=== PATIENT | male | born 1965 | race Caucasian/White ===

== ENCOUNTER 2021-02-28 10:50 | Emergency (ER) | payer OTHER ==
[~2021-02-28] VITALS: Ht 172.7 cm; Wt 154.0 kg
[2021-02-28] MEDS ORDERED: SERTRALINE50 MG PO (11:18)
[2021-02-28] MEDS ORDERED: LIPITOR20 M1 PO (11:18)
[2021-02-28] MEDS ORDERED: METFORMIN HCL500 M1 PO (11:18)
[2021-02-28 12:28] LABS: HEMATOCRIT 42.3 % (39.0-50.0); HEMOGLOBIN 14.1 g/dl (14.0-18.0); IMMATURE GRANULOCYTES 0.3 % (0.0-5.0); MEAN CORPUSCULAR HGB CONC 33.3 g/dL CAL (32.0-36.0); NEUT# 4.14 thou/uL (1.82-7.42); RED BLOOD COUNT 4.55 mill/uL (4.70-6.10); RED CELL DISTRI WIDTH 12.4 % (11.5-15.5)
[2021-02-28 12:41] LABS: ALBUMIN 3.9 g/dL (3.2-5.0); ALKALINE PHOSPHATASE 83 u/l (38-126); ANION GAP 12 (6-22 (CALC)); BILIRUBIN, TOTAL 0.8 mg/dL (0.0-1.4); BUN 13 mg/dL (9-20); BUN/CREATININE RATIO 22 (12-20 (CALC)); CARBON DIOXIDE 28 mmol/l (22-30); CHLORIDE 99 mmol/l (95-108); CREATININE 0.6 mg/dL (0.7-1.3); GFR > 60 ML/MIN (>=60 (CALC)); GFR FOR AFR.AMER. > 60 ML/MIN (>=60 (CALC)); LIPASE 82 u/l (23-300); POTASSIUM 3.6 mmol/l (3.5-5.1); SGOT/AST 39 u/l (17-59); SODIUM 136 mmol/l (137-146); TOTAL PROTEIN 6.7 g/dL (6.3-8.2)
[2021-02-28] MEDS ORDERED: ONDANSETRON4 MG PO (15:56)
[2021-02-28 16:10] VITALS: BP 141/67
== END 2021-02-28 16:00 | disposition home or self-care (01) ==
LOC: ED 10:50 → EDSEX 12:07 → ED 16:00
PROVIDERS: Family Medicine
DX: K52.9 Noninfective gastroenteritis and colitis, unspecified (principal); J45.909 Unspecified asthma, uncomplicated; Z20.822 Contact with and (suspected) exposure to COVID-19

== ENCOUNTER 2021-05-25 08:39 | Emergency (ER) | payer OTHER ==
[~2021-05-25] VITALS: Ht 172.7 cm; Wt 155.0 kg
[~2021-05-25 08:39] MED LIST: LIPITOR20 M1 PO; METFORMIN HCL500 M1 PO; ONDANSETRON4 MG PO; SERTRALINE50 MG PO
[2021-05-25 09:55] LABS: HEMATOCRIT 43.8 % (39.0-50.0); IMMATURE GRANULOCYTES 0.5 % (0.0-5.0); MEAN CELL VOLUME 93.6 fL CALC (80.0-100.0); MEAN CORPUSCULAR HGB 29.9 pG CALC (26.0-32.0); NEUT# 5.73 thou/uL (1.82-7.42); RED BLOOD COUNT 4.68 mill/uL (4.70-6.10); RED CELL DISTRI WIDTH 12.3 % (11.5-15.5)
[2021-05-25 10:13] LABS: ALBUMIN 4.1 g/dL (3.2-5.0); ALKALINE PHOSPHATASE 99 u/l (38-126); ANION GAP 13 (6-22 (CALC)); BILIRUBIN, TOTAL 0.9 mg/dL (0.0-1.4); BUN 12 mg/dL (9-20); BUN/CREATININE RATIO 20 (12-20 (CALC)); CARBON DIOXIDE 31 mmol/l (22-30); CHLORIDE 98 mmol/l (95-108); CREATININE 0.6 mg/dL (0.7-1.3); GFR > 60 ML/MIN (>=60 (CALC)); GFR FOR AFR.AMER. > 60 ML/MIN (>=60 (CALC)); POTASSIUM 4.2 mmol/l (3.5-5.1); SGOT/AST 26 u/l (17-59); SODIUM 137 mmol/l (137-146); TOTAL PROTEIN 7.5 g/dL (6.3-8.2)
[2021-05-25] MEDS ORDERED: CEPHALEXIN500 M1 PO (10:49)
[2021-05-25] MEDS ORDERED: BACTRIM DS1 TAB PO (10:49)
[2021-05-25] MEDS ORDERED: HYDROCO/APAP1 TA9 PO (10:50)
[2021-05-25 12:45] VITALS: BP 136/87
== END 2021-05-25 12:45 | disposition home or self-care (01) ==
LOC: ED 08:39 → EDSEX 10:40 → ED 12:45
PROVIDERS: Family Medicine
DX: J34.0 Abscess, furuncle and carbuncle of nose (principal); J45.909 Unspecified asthma, uncomplicated

== ENCOUNTER 2021-05-26 07:47 | Observation (INO) | payer OTHER ==
[~2021-05-26] VITALS: Ht 172.7 cm; Wt 152.0 kg
[~2021-05-26 07:47] MED LIST changes: +BACTRIM DS1 TAB PO; +CEPHALEXIN500 M1 PO; +HYDROCO/APAP1 TA9 PO
--- NOTE | 2021-05-26 07:58 | NUR ---
P[ATIENT TO ROOM WITH A STEADY GAIT.
[2021-05-26 08:41] LABS: HEMATOCRIT 42.8 % (37.0-47.0); HEMOGLOBIN 13.6 g/dl (12.0-16.0); IMMATURE GRANULOCYTES 0.4 % (0.0-5.0); MEAN CELL VOLUME 94.1 fL CALC (80.0-100.0); MEAN CORPUSCULAR HGB 29.9 pG CALC (26.0-32.0); MEAN CORPUSCULAR HGB CONC 31.8 g/dL CAL (32.0-36.0); NEUT# 7.02 thou/uL (2.00-7.15); RED BLOOD COUNT 4.55 mill/uL (4.20-5.60); RED CELL DISTRI WIDTH 12.4 % (11.5-15.5)
[2021-05-26 08:53] LABS: ALKALINE PHOSPHATASE 97 u/l (38-126); ANION GAP 14 (6-22 (CALC)); BILIRUBIN, TOTAL 1.1 mg/dL (0.0-1.4); BUN 15 mg/dL (7-17); BUN/CREATININE RATIO 21 (12-20 (CALC)); CARBON DIOXIDE 29 mmol/l (22-30); CHLORIDE 96 mmol/l (95-108); CREATININE 0.7 mg/dL (0.5-1.0); GFR > 60 ML/MIN (>=60 (CALC)); GFR FOR AFR.AMER. > 60 ML/MIN (>=60 (CALC)); POTASSIUM 3.9 mmol/l (3.5-5.1); SGOT/AST 25 u/l (14-36); SODIUM 135 mmol/l (137-146); TOTAL PROTEIN 7.2 g/dL (6.3-8.2)
--- NOTE | 2021-05-26 09:00 | NUR ---
PATIENT RETING COMFORTABLY ON STRETCHER AT THIS TIME AWAITING RESULTS
--- NOTE | 2021-05-26 09:55 | NUR ---
PATIENT RESTING COMFORTABLY ON STRETCHER AWAITING ADMISSION
--- NOTE | 2021-05-26 10:36 | NUR ---
REPORT CALLED TO FORD COPELAND.
[2021-05-26 10:42] VITALS: BP 135/71
--- NOTE | 2021-05-26 10:45 | NUR ---
Admission Note Report Given to: Transported by: X Wheelchair Stretcher Transported with: X Nurse Transporter X Patent IV O2 Chair Maker Location: ICU X MS2
--- NOTE | 2021-05-26 10:50 | NUR ---
PT ARRIVED VIA WC ACCOMPANIED BY Tabitha PEDERSEN RN. PT A&O X4. NO DISTRESS NOTED. DENIES ANY PAIN AT THIS TIME. SLIGHT REDNESS/SWELLING NOTED TO RT SIDE OF FACE ALONG WITH OUTER PART OF RT NOSTRIL. PT REPORTS SYMPTOM ONSET WAS 1MO AGO; WORSENING OVER THE PAST COUPLE OF DAYS. CLEAR BREATH SOUNDS UPON AUSCULTATION. ACTIVE BOWEL SOUNDS X4 QUADRANTS; LAST BM REPORTED 05/25. STRONG PEDAL PULSES BILATERALLY. #20G LAC HEALTHY AND PATENT CURRENTLY INFUSING VANCOMYCIN. PT DRESSED IN OWN SLEEPING GOWN. TETE HOSES OFFERED BUT REFUSED. DENIES ANY HX OF BLOOD TRANSFUSIONS; PT OF SCIENTOLOGY NINA. ORIENTED PT TO ROOM. CALL LIGHT WITHIN REACH. ASSESSMENT COMPLETED AT THIS TIME.
--- NOTE | 2021-05-26 13:06 | NUR ---
REPORT RECEIVCED BY MIN PADGETT AND MIN TOWNSEND WILL CONTINUE ORIENTING. PATIENT IS RESTING IN BED WITH NO DISTRESS NOTED. PATIENT DENIES NEEDS AT THIS TIME. CALL LIGHT IN REACH.
--- NOTE | 2021-05-26 14:11 | NUR ---
DR. MORELAND AT BEDSIDE VIA ZOOM CALL WITH PT.
--- NOTE | 2021-05-26 14:48 | NUR ---
S: ANEUDY DRISCOLL is a 56 F who presents with cellulitis. She has a history of polycystic ovary, lumpectomy left breast, right foot bone spur, and asthma. All medications in patient's chart were reviewed. O: VS: BP 124/56 mmHg, P 80 bpm, RR 20 bpm, T 97.5F W 152.093 kg, HT 68 inches, Scr=0.7 mg/dL, XuIl=929.3 ml/min A: Blood culture is pending. P: Patient is on Unasyn 3 G IV Q6H. Vancomycin ordered for pharmacy to dose. Start Vancomycin 1 G IV Q8H. Vancomycin trough is drawn before the 4th dose on 05/27/2021 @ 0730. Vancomycin goal trough is between <10-15 mcg/ml>. Pharmacy will follow and or advise on antibiotics use as needed.
[2021-05-26 15:12] VITALS: BP 131/71
--- NOTE | 2021-05-26 16:38 | NUR ---
PT REPORTED PAIN OF 6 OUT OF 10. TORADAL 15MG GIVEN IV.
[2021-05-26 19:00] VITALS: BP 141/66
--- NOTE | 2021-05-26 20:00 | NUR ---
PATIENT SEMI-FOWLERS. A&oX3. DENIES PAIN AT THIS TIME. RIGHT SIDE OF FACE ONLY MILD SWELLING NOTED. REDNESS NOTED. LUNGS CTA. NO COMPLAINTS. ASSESSMENT COMPLETED AND CHARTED. NO ACUTE DISTRESS OBSERVED. BED IN LOW POSITION. CALL LIGHT WITHIN REACH.
[2021-05-27] VITALS: BP 148/77
--- NOTE | 2021-05-27 | NUR ---
IV ABT INFUSING ORDERED. NO COMPLAINTS.
[2021-05-27 04:00] VITALS: BP 152/70
--- NOTE | 2021-05-27 04:49 | NUR ---
PATIENT RESTING QUIETLY IVF INFUSING ORDERED. NO ACUTE DISTRESS OBSERVED.
[2021-05-27 05:21] LABS: HEMOGLOBIN 11.9 g/dl (12.0-16.0); MEAN CELL VOLUME 91.9 fL CALC (80.0-100.0); MEAN CORPUSCULAR HGB 30.3 pG CALC (26.0-32.0); RED BLOOD COUNT 3.93 mill/uL (4.20-5.60); RED CELL DISTRI WIDTH 12.4 % (11.5-15.5)
[2021-05-27 05:24] LABS: HEMATOCRIT 36.1 % (37.0-47.0)
[2021-05-27 05:31] LABS: ANION GAP 10 (6-22 (CALC)); BUN 17 mg/dL (7-17); BUN/CREATININE RATIO 29 (12-20 (CALC)); CARBON DIOXIDE 27 mmol/l (22-30); CHLORIDE 104 mmol/l (95-108); CREATININE 0.6 mg/dL (0.5-1.0); GFR > 60 ML/MIN (>=60 (CALC)); GFR FOR AFR.AMER. > 60 ML/MIN (>=60 (CALC)); MAGNESIUM 1.7 mg/dL (1.6-2.3); POTASSIUM 4.1 mmol/l (3.5-5.1); SODIUM 137 mmol/l (137-146)
--- NOTE | 2021-05-27 07:30 | NUR ---
REPORT RECEIVED FROM MIN FERGUSON. PT RESTING IN BED SEMI FOWLERS; ALERT AND ORIENTED X 3. DENIES PAIN; HAS SOME SORENESS ON PALPATION TO RIGHT FACE; ALSO HAS VERY MILD REDNESS AND WARMTH. PT STATES HER SWELLLING HAS IMPROVED. RESPIRATIONS EVEN AND UNLABORED ON ROOM AIR. IV FLUIDS INFUSING WITHOUT DIFFICULTY; IV SITE APPEARS HEALTHY. POC REVIEWED; PT ENCOURAGED TO VERBALIZE CONCERNS; STATES THAT SHE WANTS HER ZOLOFT JUANITA; ZOLOFT ADMINSITERED EARLY PER PT REQUEST. SAFETY MEASURES IN PLACE; CALL LIGHT WITHIN REACH.
[2021-05-27 07:33] VITALS: BP 135/63
--- NOTE | 2021-05-27 08:57 | NUR ---
AND BRETT ALBRECHT AT BEDSIDE.
--- NOTE | 2021-05-27 12:15 | NUR ---
UNASYN INFUSING. PT RESTING IN BED WATCHING TV AND EATING LUNCH; NO REQUESTS OR CONCERNS AT THIS TIME. AFTERNOON ACCU CHECK 137; VSS. INDEPENDENT TO BATHROOM; AMBULATORY IN ROOM. CALL LIGHT WITHIN REACH.
[2021-05-27 15:50] VITALS: BP 135/72
--- NOTE | 2021-05-27 16:41 | NUR ---
DISCONNECTED IV FOR SHOWER. PT NOW BACK IN BED WITH FLUIDS AGAIN INFUSING WELL VANCO. VANCO TROUGH PRIOR TO MED WAS 10.
[2021-05-27 19:00] VITALS: BP 149/79
[2021-05-27] MEDS ORDERED: AMOX/K CLAV875 M1 PO (19:46)
--- NOTE | 2021-05-27 20:30 | NUR ---
PT RESTING IN BED, NO SIGNS OF DISTRESS NOTED, RESP EVEN AND UNLABORED. PT ALERT AND ORIENTED X3, DISCUSSED POC, PT VOICES NO NEEDS OR COMPLAINTS AT THIS TIME. NOTED MILD EDEMA TO FACE, NO OPEN AREA. PT DENIES ANY PAIN TO SITE. PT MEDICATED PER MAR, IV VANCO INFUSING, ASSESSMENT COMPLETED, PT VOICES NO NEEDS OR COMPLAINTS AT THIS TIME, CALL LIGHT IN REACH,CONTINUE TO MONITOR.
--- NOTE | 2021-05-28 | NUR ---
PT RESTING IN BED, IV ANTIBIOTIC INFUSING. PT VOICES NO NEEDS OR COMPLAINTS AT THIS TIME, CALL LIGHT IN REACH,CONTINUE TO MONITOR.
[2021-05-28 04:00] VITALS: BP 147/71
--- NOTE | 2021-05-28 04:00 | NUR ---
PT RESTING IN BED, NO SIGNS OF DISTRESS NOTED, RESP EVEN AND UNLABORED. PT VOICES NO NEEDS OR COMPLAINTS AT THIS TIME, CALL LIGHT IN REACH,CONTINUE TO MONITOR.
[2021-05-28 07:15] VITALS: BP 153/75
--- NOTE | 2021-05-28 07:15 | NUR ---
PT LYING IN BED AWAKE. ASSESSMENT PERFORMED. NO COMPLAINTS/ DISTRESS AT THIS TIME, WILL CONTINUE TO MONITOR.
[2021-05-28] MEDS ORDERED: ULTRAM50 M1 PO (08:46)
[2021-05-28 14:37] VITALS: BP 137/57
--- NOTE | 2021-05-28 15:56 | NUR ---
PT RIDE IS STUCK IN ER WITH A FAMILY MEMBER. PT STATED THAT HER FRIEND WILL NOT LEAVE HER FAMILY MEMBER TO TRANSPORTATION SOLUTIONS MANAGER HER A RIDE HOME. TRANSPORT HAS BEEN SET UP BY CASE MANAGEMENT. PT HAS NOW REFUSED. DOES NOT WANT RIDE HOME AND WOULD LIKE TO GO SIT IN HER FRIEND CAR WHILE SHE IS AWAITING HER FAMILY MEMBER TO LEAVE ER. EXPLAINED THIS IS A LIABILITY AND CANNOT BE DONE. PT BECAME IRATE YELLING AT SN AND CM. CM NOTIFIED RISK MANAGEMENT AND MEDICAL NUMERICAL CONTROL OPERATOR.
--- NOTE | 2021-05-28 18:45 | NUR ---
Discharge instructions given. Patient verbalizes understanding of same. Discharged in stable condition via Wheelchair to Home with family. All belongings sent with pt. PT SENT HOME WITH IV IN PLACE, PT DUE FOR IV THERAPY TOMORROW 1PM. APPROVED BY PLATFORM ENGINEER. SALINE LOCKED AND WRAPPED WITH COBAN.
== END 2021-05-28 18:45 | disposition home or self-care (01) ==
LOC: ED 07:47 → ED-I 09:45 → ED 10:04 → MS2 10:05
PROVIDERS: Family Medicine; Nurse Practitioner; ADMIT Internal Medicine; ATTEND Internal Medicine
DX: L03.211 Cellulitis of face (principal); E11.65 Type 2 diabetes mellitus with hyperglycemia; E87.2 Acidosis; E66.01 Morbid (severe) obesity due to excess calories; Z68.43 Body mass index [BMI] 50.0-59.9, adult; E78.5 Hyperlipidemia, unspecified; F32.A Depression, unspecified; F41.9 Anxiety disorder, unspecified; J45.909 Unspecified asthma, uncomplicated; Z79.84 Long term (current) use of oral hypoglycemic drugs; Z20.822 Contact with and (suspected) exposure to COVID-19
CPT/HCPCS: G0378; J1650; Q9967

== ENCOUNTER 2021-06-15 08:03 | Emergency (ER) | payer OTHER ==
[~2021-06-15] VITALS: Ht 172.7 cm; Wt 151.8 kg
[~2021-06-15 08:03] MED LIST changes: +AMOX/K CLAV875 M1 PO; +ULTRAM50 M1 PO
[2021-06-15 09:36] VITALS: BP 155/80
== END 2021-06-15 09:42 | disposition home or self-care (01) ==
LOC: ED 08:03
DX: S62.665A Nondisplaced fracture of distal phalanx of left ring finger, initial encounter for closed fracture (principal); E11.9 Type 2 diabetes mellitus without complications; E66.9 Obesity, unspecified; J45.909 Unspecified asthma, uncomplicated; W55.12XA Struck by horse, initial encounter; Y93.K9 Activity, other involving animal care; Y92.009 Unspecified place in unspecified non-institutional (private) residence as the place of occurrence of the external cause; Z79.84 Long term (current) use of oral hypoglycemic drugs

== ENCOUNTER 2021-07-18 12:08 | Emergency (ER) | payer OTHER ==
[~2021-07-18] VITALS: Ht 172.7 cm; Wt 140.0 kg
[2021-07-18] MEDS ORDERED: BACTRIM DS1 TAB PO (15:06)
[2021-07-18 15:30] VITALS: BP 148/83
== END 2021-07-18 15:30 | disposition home or self-care (01) ==
LOC: ED 12:08
DX: S62.635D Displaced fracture of distal phalanx of left ring finger, subsequent encounter for fracture with routine healing (principal); N61.0 Mastitis without abscess; E11.9 Type 2 diabetes mellitus without complications; J45.909 Unspecified asthma, uncomplicated; W55.19XD Other contact with horse, subsequent encounter; Z86.14 Personal history of Methicillin resistant Staphylococcus aureus infection; Z79.84 Long term (current) use of oral hypoglycemic drugs

== ENCOUNTER 2021-08-22 09:20 | Emergency (ER) | payer OTHER ==
[~2021-08-22] VITALS: Ht 172.7 cm; Wt 147.7 kg
[2021-08-22] MEDS ORDERED: PROAIR HFA108 MCG/AC IN (09:59)
[2021-08-22 10:48] LABS: ALBUMIN 3.7 g/dL (3.2-5.0); ALKALINE PHOSPHATASE 84 u/l (38-126); ANION GAP 16 (6-22 (CALC)); BUN 9 mg/dL (7-17); BUN/CREATININE RATIO 13 (12-20 (CALC)); CARBON DIOXIDE 24 mmol/l (22-30); CHLORIDE 103 mmol/l (95-108); CREATININE 0.7 mg/dL (0.5-1.0); GFR > 60 ML/MIN (>=60 (CALC)); GFR FOR AFR.AMER. > 60 ML/MIN (>=60 (CALC)); POTASSIUM 3.4 mmol/l (3.5-5.1); SGOT/AST 29 u/l (14-36); SODIUM 140 mmol/l (137-146); TOTAL PROTEIN 6.7 g/dL (6.3-8.2)
[2021-08-22 10:57] LABS: HEMOGLOBIN 13.5 g/dl (12.0-16.0); MEAN CELL VOLUME 94.1 fL CALC (80.0-100.0); MEAN CORPUSCULAR HGB 29.5 pG CALC (26.0-32.0); MEAN CORPUSCULAR HGB CONC 31.3 g/dL CAL (32.0-36.0); NEUT# 2.72 thou/uL (2.00-7.15); RED BLOOD COUNT 4.58 mill/uL (4.20-5.60); RED CELL DISTRI WIDTH 13.4 % (11.5-15.5)
[2021-08-22 11:01] LABS: BILIRUBIN, TOTAL 0.5 mg/dL (0.0-1.4); HEMATOCRIT 43.1 % (37.0-47.0)
[2021-08-22] MEDS ORDERED: PREDNISONE50 MG PO (12:03)
[2021-08-22] MEDS ORDERED: IPRATROPIU0.5 MG/3 M NEB (12:03)
[2021-08-22] MEDS ORDERED: ZPAK PO (12:04)
[2021-08-22] MEDS ORDERED: TESSALON PERLE100 MG PO (12:19)
[2021-08-22 12:20] VITALS: BP 150/83
== END 2021-08-22 12:30 | disposition home or self-care (01) ==
LOC: ED 09:20
PROVIDERS: Emergency Medicine
DX: J45.901 Unspecified asthma with (acute) exacerbation (principal); E11.9 Type 2 diabetes mellitus without complications; Z86.14 Personal history of Methicillin resistant Staphylococcus aureus infection; Z79.84 Long term (current) use of oral hypoglycemic drugs; Z20.822 Contact with and (suspected) exposure to COVID-19

== ENCOUNTER 2021-10-23 09:34 | Emergency (ER) | payer OTHER ==
[~2021-10-23] VITALS: Ht 172.7 cm; Wt 148.0 kg
[~2021-10-23 09:34] MED LIST changes: +IPRATROPIU0.5 MG/3 M NEB; +PREDNISONE50 MG PO; +PROAIR HFA108 MCG/AC IN; +TESSALON PERLE100 MG PO; +ZPAK PO
[2021-10-23 09:42] VITALS: BP 112/58
[2021-10-23] MEDS ORDERED: PREDNISONE50 MG PO (10:45)
[2021-10-23] MEDS ORDERED: ZPAK PO (10:45)
[2021-10-23] MEDS ORDERED: PROTONIX40 M2 PO (10:46)
[2021-10-23 11:10] VITALS: BP 112/58
== END 2021-10-23 11:10 | disposition home or self-care (01) ==
LOC: ED 09:34
DX: J06.9 Acute upper respiratory infection, unspecified (principal); E11.9 Type 2 diabetes mellitus without complications; E66.9 Obesity, unspecified; J45.909 Unspecified asthma, uncomplicated; Z86.14 Personal history of Methicillin resistant Staphylococcus aureus infection; Z79.84 Long term (current) use of oral hypoglycemic drugs; Z20.822 Contact with and (suspected) exposure to COVID-19

== ENCOUNTER 2021-10-29 07:55 | Emergency (ER) | payer OTHER ==
[~2021-10-29] VITALS: Ht 172.7 cm; Wt 143.2 kg
[~2021-10-29 07:55] MED LIST changes: +PROTONIX40 M2 PO
[2021-10-29 08:31] VITALS: BP 147/64
[2021-10-29 08:46] VITALS: BP 123/54
[2021-10-29 09:16] VITALS: BP 121/99
[2021-10-29 09:46] VITALS: BP 132/61
[2021-10-29] MEDS ORDERED: AMOX/K CLAV875 M1 PO (09:48)
[2021-10-29] MEDS ORDERED: TESSALON PERLE100 MG PO (09:48)
[2021-10-29 09:57] VITALS: BP 132/61
== END 2021-10-29 09:57 | disposition home or self-care (01) ==
LOC: ED 07:55
DX: J06.9 Acute upper respiratory infection, unspecified (principal); H66.93 Otitis media, unspecified, bilateral; E11.9 Type 2 diabetes mellitus without complications; J45.909 Unspecified asthma, uncomplicated; Z79.84 Long term (current) use of oral hypoglycemic drugs; Z20.822 Contact with and (suspected) exposure to COVID-19

== ENCOUNTER 2021-12-05 08:12 | Emergency (ER) | payer OTHER ==
[~2021-12-05] VITALS: Ht 172.7 cm; Wt 153.0 kg
[~2021-12-05 08:12] MED LIST changes: +PROAIR HFA108 MCG/AC
[2021-12-05 08:21] VITALS: BP 140/73
[2021-12-05 09:13] VITALS: BP 140/73
== END 2021-12-05 09:19 | disposition home or self-care (01) ==
LOC: ED 08:12
DX: M25.552 Pain in left hip (principal); E11.9 Type 2 diabetes mellitus without complications; J45.909 Unspecified asthma, uncomplicated; Z79.84 Long term (current) use of oral hypoglycemic drugs

== ENCOUNTER 2021-12-08 07:14 | Day surgery (SDC) | payer OTHER ==
[~2021-12-08] VITALS: Ht 172.7 cm; Wt 142.4 kg
[2021-12-08 09:17] VITALS: BP 148/74
== END 2021-12-08 09:36 | disposition home or self-care (01) ==
LOC: ENDO 07:14 → ORM 08:00 → ENDO 08:00
PROVIDERS: ATTEND Surgery
DX: K64.8 Other hemorrhoids (principal); E11.9 Type 2 diabetes mellitus without complications; Z79.84 Long term (current) use of oral hypoglycemic drugs

== ENCOUNTER 2022-05-12 14:09 | Emergency (ER) | payer OTHER ==
[~2022-05-12] VITALS: Ht 172.7 cm; Wt 136.0 kg
[2022-05-12] VITALS (8 sets, daily range): BP systolic 131–157; BP diastolic 71–78
[2022-05-12] MEDS ORDERED: BACTRIM DS1 TAB PO (16:12)
[2022-05-12] MEDS ORDERED: CEPHALEXIN500 M1 PO (16:12)
== END 2022-05-12 17:10 | disposition home or self-care (01) ==
LOC: ED 14:09
DX: L03.032 Cellulitis of left toe (principal); E11.9 Type 2 diabetes mellitus without complications; E66.9 Obesity, unspecified; J45.909 Unspecified asthma, uncomplicated; Z86.14 Personal history of Methicillin resistant Staphylococcus aureus infection; Z79.84 Long term (current) use of oral hypoglycemic drugs

== ENCOUNTER 2022-05-15 07:26 | Emergency (ER) | payer OTHER ==
[2022-05-15] VITALS (10 sets, daily range): BP systolic 119–154; BP diastolic 53–69
[~2022-05-15] VITALS: Ht 172.7 cm; Wt 136.0 kg
[2022-05-15 08:17] LABS: HEMATOCRIT 41.6 % (37.0-47.0); HEMOGLOBIN 13.5 g/dl (12.0-16.0); IMMATURE GRANULOCYTES 0.2 % (0.0-5.0); MEAN CELL VOLUME 92.7 fL CALC (80.0-100.0); MEAN CORPUSCULAR HGB 30.1 pG CALC (26.0-32.0); MEAN CORPUSCULAR HGB CONC 32.5 g/dL CAL (32.0-36.0); NEUT# 3.79 thou/uL (2.00-7.15); RED BLOOD COUNT 4.49 mill/uL (4.20-5.60); RED CELL DISTRI WIDTH 13.1 % (11.5-15.5)
[2022-05-15 08:32] LABS: ALBUMIN 4.1 g/dL (3.2-5.0); ALKALINE PHOSPHATASE 117 u/l (38-126); ANION GAP 15 (6-22 (CALC)); BILIRUBIN, TOTAL 0.6 mg/dL (0.0-1.4); BUN 10 mg/dL (7-17); BUN/CREATININE RATIO 15 (12-20 (CALC)); CARBON DIOXIDE 27 mmol/l (22-30); CHLORIDE 101 mmol/l (95-108); CREATININE 0.7 mg/dL (0.5-1.0); GFR FOR AFR.AMER. > 60 ML/MIN (>=60 (CALC)); GFR OTHER RACES > 60 ML/MIN (>=60 (CALC)); SGOT/AST 40 u/l (14-36); SODIUM 139 mmol/l (137-146); TOTAL PROTEIN 6.9 g/dL (6.3-8.2)
[2022-05-16] MEDS ORDERED: AMARYL1 M1 PO (10:55)
[2022-05-16] MEDS ORDERED: JARDIANCE25 MG PO (11:13)
== END 2022-05-15 12:14 | disposition home or self-care (01) ==
LOC: ED 07:26
PROVIDERS: Family Medicine
DX: L02.612 Cutaneous abscess of left foot (principal); L03.032 Cellulitis of left toe; E11.9 Type 2 diabetes mellitus without complications; E66.9 Obesity, unspecified; J45.909 Unspecified asthma, uncomplicated; Z86.14 Personal history of Methicillin resistant Staphylococcus aureus infection; Z79.84 Long term (current) use of oral hypoglycemic drugs
CPT/HCPCS: J0878

== ENCOUNTER 2022-05-16 07:57 | Inpatient (IN) | payer OTHER ==
[~2022-05-16] VITALS: Ht 172.7 cm; Wt 136.0 kg
[2022-05-16 08:41] LABS: HEMATOCRIT 42.7 % (37.0-47.0); HEMOGLOBIN 13.6 g/dl (12.0-16.0); IMMATURE GRANULOCYTES 0.5 % (0.0-5.0); MEAN CELL VOLUME 92.8 fL CALC (80.0-100.0); MEAN CORPUSCULAR HGB 29.6 pG CALC (26.0-32.0); MEAN CORPUSCULAR HGB CONC 31.9 g/dL CAL (32.0-36.0); NEUT# 4.28 thou/uL (2.00-7.15); RED BLOOD COUNT 4.6 mill/uL (4.20-5.60)
[2022-05-16 08:47] LABS: ALBUMIN 4.2 g/dL (3.2-5.0); ALKALINE PHOSPHATASE 124 u/l (38-126); ANION GAP 14 (6-22 (CALC)); BUN 7 mg/dL (7-17); BUN/CREATININE RATIO 10 (12-20 (CALC)); CARBON DIOXIDE 26 mmol/l (22-30); CHLORIDE 102 mmol/l (95-108); CREATININE 0.7 mg/dL (0.5-1.0); GFR FOR AFR.AMER. > 60 ML/MIN (>=60 (CALC)); GFR OTHER RACES > 60 ML/MIN (>=60 (CALC)); POTASSIUM 3.8 mmol/l (3.5-5.1); SGOT/AST 40 u/l (14-36); SODIUM 138 mmol/l (137-146); TOTAL PROTEIN 7.2 g/dL (6.3-8.2)
[2022-05-16 08:55] LABS: BILIRUBIN, TOTAL 0.9 mg/dL (0.0-1.4)
[2022-05-16 10:43] VITALS: BP 142/49
[2022-05-16] MEDS ORDERED: AMARYL1 M1 PO (10:55)
[2022-05-16] MEDS ORDERED: JARDIANCE25 MG PO (11:13)
[2022-05-16 14:16] VITALS: BP 140/49
[2022-05-16 19:31] VITALS: BP 116/51
[2022-05-17 04:17] VITALS: BP 151/78
[2022-05-17 06:33] VITALS: BP 132/71
[2022-05-17 08:32] VITALS: BP 128/50
[2022-05-17 15:20] VITALS: BP 128/50
[2022-05-17 19:03] VITALS: BP 133/56
[2022-05-18 05:21] LABS: HEMATOCRIT 39.7 % (37.0-47.0); HEMOGLOBIN 12.8 g/dl (12.0-16.0); MEAN CELL VOLUME 91.9 fL CALC (80.0-100.0); MEAN CORPUSCULAR HGB 29.6 pG CALC (26.0-32.0); MEAN CORPUSCULAR HGB CONC 32.2 g/dL CAL (32.0-36.0); RED BLOOD COUNT 4.32 mill/uL (4.20-5.60); RED CELL DISTRI WIDTH 13.1 % (11.5-15.5)
[2022-05-18 05:45] LABS: ANION GAP 10 (6-22 (CALC)); BUN 10 mg/dL (7-17); BUN/CREATININE RATIO 15 (12-20 (CALC)); C-REACTIVE PROTEIN 3.6 mg/dL (0-0.9); CARBON DIOXIDE 25 mmol/l (22-30); CHLORIDE 108 mmol/l (95-108); CREATININE 0.7 mg/dL (0.5-1.0); GFR FOR AFR.AMER. > 60 ML/MIN (>=60 (CALC)); GFR OTHER RACES > 60 ML/MIN (>=60 (CALC)); POTASSIUM 3.8 mmol/l (3.5-5.1); SODIUM 139 mmol/l (137-146)
[2022-05-18 06:58] VITALS: BP 145/64
[2022-05-18 16:14] VITALS: BP 166/73
[2022-05-18 19:01] VITALS: BP 136/50
[2022-05-19 04:32] VITALS: BP 141/60
[2022-05-19 06:57] VITALS: BP 151/58
[2022-05-19 08:28] VITALS: BP 151/58
[2022-05-19 19:32] VITALS: BP 129/59
[2022-05-19 20:03] VITALS: BP 137/52
[2022-05-19 20:30] VITALS: BP 143/57
[2022-05-20 04:33] VITALS: BP 127/56
[2022-05-20 07:08] VITALS: BP 146/58
[2022-05-20 10:23] VITALS: BP 126/56
[2022-05-20] MEDS ORDERED: VIBRAMYCIN100 M2 PO (13:05)
[2022-05-20] MEDS ORDERED: TRAMADOL HCL50 MG PO (13:07)
== END 2022-05-20 13:38 | disposition home or self-care (01) | DRG 575 ==
LOC: ED 07:57 → ED-I 08:47 → ED 09:27 → MS2 09:28
PROVIDERS: Family Medicine; Internal Medicine; ADMIT Internal Medicine; ATTEND Internal Medicine
PROC: 0J9R0ZZ Drainage of Left Foot Subcutaneous Tissue and Fascia, Open Approach (ICD-10-PCS; principal; 2022-05-19)
PROC: 0HXNXZZ Transfer Left Foot Skin, External Approach (ICD-10-PCS; 2022-05-19)
DX: L02.612 Cutaneous abscess of left foot (principal); L03.032 Cellulitis of left toe; E11.65 Type 2 diabetes mellitus with hyperglycemia; J45.909 Unspecified asthma, uncomplicated; F41.9 Anxiety disorder, unspecified; F32.A Depression, unspecified; E78.5 Hyperlipidemia, unspecified; B95.62 Methicillin resistant Staphylococcus aureus infection as the cause of diseases classified elsewhere; Z86.14 Personal history of Methicillin resistant Staphylococcus aureus infection; Z79.84 Long term (current) use of oral hypoglycemic drugs; Z20.822 Contact with and (suspected) exposure to COVID-19
CPT/HCPCS: J1650; J3370

== ENCOUNTER 2022-07-10 10:22 | Emergency (ER) | payer OTHER ==
[2022-07-10] VITALS (7 sets, daily range): BP systolic 111–149; BP diastolic 50–104
[~2022-07-10] VITALS: Ht 172.7 cm; Wt 149.5 kg
[~2022-07-10 10:22] MED LIST changes: +AMARYL1 M1 PO; +JARDIANCE25 MG PO; +TRAMADOL HCL50 MG PO; +VIBRAMYCIN100 M2 PO
[2022-07-10] MEDS ORDERED: MUPIROCIN2 % EX (11:09)
[2022-07-10] MEDS ORDERED: BACTRIM DS1 TAB PO (11:09)
[2022-07-10] MEDS ORDERED: OMNI-PAC300 MG PO (11:09)
== END 2022-07-10 12:14 | disposition home or self-care (01) ==
LOC: ED 10:22
DX: L03.032 Cellulitis of left toe (principal); I10 Essential (primary) hypertension; E11.9 Type 2 diabetes mellitus without complications; E66.9 Obesity, unspecified; J45.909 Unspecified asthma, uncomplicated; Z86.14 Personal history of Methicillin resistant Staphylococcus aureus infection; Z79.84 Long term (current) use of oral hypoglycemic drugs

== ENCOUNTER 2023-03-27 08:15 | Emergency (ER) | payer OTHER ==
[~2023-03-27] VITALS: Ht 172.7 cm; Wt 145.1 kg
[~2023-03-27 08:15] MED LIST changes: +MUPIROCIN2 % EX; +OMNI-PAC300 MG PO
[2023-03-27 08:23] VITALS: BP 151/73
[2023-03-27 08:32] VITALS: BP 110/61
[2023-03-27] MEDS ORDERED: ZPAK PO (08:33)
[2023-03-27] MEDS ORDERED: PREDNISONE50 MG PO (08:33)
[2023-03-27] MEDS ORDERED: VENTOLIN HFA108 MCG PO (08:33)
[2023-03-27] MEDS ORDERED: ALBUTEROL SUL0.083 % IN (08:33)
[2023-03-27 09:01] VITALS: BP 133/74
[2023-03-27 09:31] VITALS: BP 126/51
[2023-03-27 09:44] VITALS: BP 134/57
[2023-03-27 09:45] VITALS: BP 134/57
== END 2023-03-27 09:50 | disposition home or self-care (01) ==
LOC: ED 08:15
DX: J11.1 Influenza due to unidentified influenza virus with other respiratory manifestations (principal); I10 Essential (primary) hypertension; E11.9 Type 2 diabetes mellitus without complications; E66.9 Obesity, unspecified; Z79.84 Long term (current) use of oral hypoglycemic drugs; Z20.822 Contact with and (suspected) exposure to COVID-19

== ENCOUNTER 2023-07-10 09:11 | Emergency (ER) | payer OTHER ==
[~2023-07-10] VITALS: Ht 172.7 cm; Wt 157.0 kg
[~2023-07-10 09:11] MED LIST changes: +ALBUTEROL SUL0.083 % IN; +MEDDOSEPAK PO; +MELOXICAM7.5 MG PO; +VENTOLIN HFA108 MCG PO
[2023-07-10 09:20] VITALS: BP 149/67
[2023-07-10 09:32] VITALS: BP 123/33
[2023-07-10 09:35] LABS: EOS% 3.7 % (0-8); HEMATOCRIT 41.5 % (37.0-47.0); HEMOGLOBIN 13.1 g/dl (12.0-16.0); IMMATURE GRANULOCYTES 0.2 % (0.0-5.0); LYMPH% 21.7 % (15-41); MEAN CELL VOLUME 89.1 fL CALC (80.0-100.0); MEAN CORPUSCULAR HGB 28.1 pG CALC (26.0-32.0); MEAN CORPUSCULAR HGB CONC 31.6 g/dL CAL (32.0-36.0); MONO% 7.5 % (2-13); NEUT# 3.96 thou/uL (2.00-7.15); NEUT% 65.9 % (42-76); RED BLOOD COUNT 4.66 mill/uL (4.20-5.60)
[2023-07-10 09:48] LABS: ANION GAP 11 (6-22 (CALC)); BUN 11 mg/dL (7-17); BUN/CREATININE RATIO 16 (12-20 (CALC)); CARBON DIOXIDE 29 mmol/l (22-30); CHLORIDE 100 mmol/l (95-108); CREATININE 0.7 mg/dL (0.5-1.0); GFR FOR AFR.AMER. > 60 ML/MIN (>=60 (CALC)); GFR OTHER RACES > 60 ML/MIN (>=60 (CALC)); POTASSIUM 4.1 mmol/l (3.5-5.1); SODIUM 135 mmol/l (137-146)
[2023-07-10 10:01] VITALS: BP 132/54
[2023-07-10 10:31] VITALS: BP 120/96
[2023-07-10] MEDS ORDERED: MEDDOSEPAK PO (10:40)
[2023-07-10] MEDS ORDERED: AMOX/K CLAV875 M1 PO (10:40)
[2023-07-10] MEDS ORDERED: ROBITUSSIN AC10 ML PO (10:41)
[2023-07-10 11:09] VITALS: BP 120/96
== END 2023-07-10 10:50 | disposition home or self-care (01) ==
LOC: ED 09:11
PROVIDERS: Emergency Medicine
DX: J45.901 Unspecified asthma with (acute) exacerbation (principal); J06.9 Acute upper respiratory infection, unspecified; E11.9 Type 2 diabetes mellitus without complications; Z79.84 Long term (current) use of oral hypoglycemic drugs; Z20.822 Contact with and (suspected) exposure to COVID-19